=== PATIENT | male | born 1985 | race Two or more races ===

== ENCOUNTER 2016-11-19 18:14 | Emergency (ER) | payer OTHER ==
[2016-11-19 18:19] VITALS: BP 134/93; PULSE 90; TEMP 99; BMI 28.2
--- NOTE | 2016-11-19 19:30 | PDOC ---
History of Present Illness - General Chief Complaint: Respiratory Stated Complaint: COLD SYMPTOMS Time Seen by Provider: 11/19/16 18:42 History Source: Patient Exam Limitations: No Limitations - History of Present Illness Initial Comments: 11/19/16 19:28 Chief complaint: Sore throat Patient 31-year-old male with a history of seizures who states he's had 2 days of cough, sore throat, runny nose, no fever. Patient is mostly concerned regarding nasal congestion and phlegm GENERAL/CONSTITUTIONAL: No fever, weakness. dizziness HEAD, EYES, EARS, NOSE AND THROAT: No change in vision. No ear pain or discharge. +sore throat, + nasal congestion CARDIOVASCULAR: No chest pain RESPIRATORY: No shortness of breath or cough GASTROINTESTINAL: No pain, nausea, vomiting, diarrhea or constipation GENITOURINARY: No dysuria MUSCULOSKELETAL: No neck or back pain SKIN: No rash NEUROLOGIC: No headache, vertigo, loss of consciousness, or loss of sensation. GENERAL: The patient is awake, alert, and fully oriented, in no acute distress. HEAD: Normal with no signs of trauma. EYES: Pupils equal, round and reactive to light, sclera anicteric, conjunctiva clear. ENT: pharynx: no erythema, no exudate, uvula midline NECK: supple CHEST: clear, nontender, rr ABD: soft, nontender EXTREMITIES: Normal range of motion, no edema. NEUROLOGICAL: Normal speech, normal gait. SKIN: Warm, Dry Past History - Past Medical History Allergies/Adverse Reactions: Allergies Allergy/AdvReac Type Severity Reaction Status Date / Time No Known Allergies Allergy Verified 11/19/16 18:19 Home Medications: Ambulatory Orders Clobazam [Onfi -] 10 mg PO BID 09/14/15 Lacosamide [Vimpat] 1 each PO BID 09/14/15 Levetiracetam [Keppra] 1,500 mg PO BID 09/14/15 Seizures: Yes - Psycho/Social/Smoking Cessation Hx Suicidal Ideation: No Smoking History: Never smoked Hx Alcohol Use: No Drug/Substance Use Hx: No Substance Use Type: None *Physical Exam - Vital Signs Last Vital Signs Temp Pulse Resp BP Pulse Ox 99.0 F 90 18 134/93 98 11/19/16 18:17 11/19/16 18:17 11/19/16 18:17 11/19/16 18:17 11/19/16 18:17 Medical Decision Making - Medical Decision Making 11/19/16 20:06 pt appears well +flu b *DC/Admit/Observation/Transfer Diagnosis at time of Disposition: Influenza B - Discharge Dispostion Disposition: HOME Condition at time of disposition: Stable Admit: No - Patient Instructions Printed Discharge Instructions: Influenza Additional Instructions: Drink 2-3 L of water daily Take Tylenol 650 mg every 4 hours or Motrin 600 mg every 6 hours for fever and pain You can take Sudafed 30 mg as directed on the package for the next 2-3 days Return to the nearest ER if short of breath, unable to swallow or feeling sicker Followup with your doctor in one to 2 days
== END 2016-11-19 20:12 | disposition home or self-care (01) ==
LOC: JERFT 18:14
DX: J10.1 Influenza due to other identified influenza virus with other respiratory manifestations (principal); Z86.69 Personal history of other diseases of the nervous system and sense organs
CPT/HCPCS: 87070; 87430; 87804; 99281-25

== ENCOUNTER 2017-03-11 11:19 | Emergency (ER) | payer OTHER ==
[2017-03-11 11:29] VITALS: TEMP 98.2; BMI 28.3
--- NOTE | 2017-03-11 12:29 | PDOC ---
History of Present Illness - General History Source: Patient Exam Limitations: No Limitations - History of Present Illness Initial Comments: 03/11/17 12:33 The patient is a 31 year old male with past medical history of epilepsy, s/p brain surgery in 2011 who presents to the ED with complaints of left arm and leg numbness and tingling for one week. The patient states that he has experienced these symptoms intermittently for the past couple of months, primarily affecting his upper and lower extremities and occasionally his left face. However, for the past week his symptoms have been constant and are reminiscent of the sensation he would get before having a seizure. The patient was at a doctors appointment today in which his blood pressure was slightly elevated (160) but in the ED it has since gone down. He reports occasional headache but denies any LOC or neck pain. He denies any illness, fever, or chills. Neurologist: Carlos Khan <Zara Hunt - Last Filed: 03/11/17 14:43> - General History Source: Patient Exam Limitations: No Limitations <Lg Elliott - Last Filed: 03/11/17 14:55> - General Chief Complaint: Weakness Stated Complaint: BLOOD PRESSURE PROBLEM Time Seen by Provider: 03/11/17 11:41 Past History <Zara Hunt - Last Filed: 03/11/17 14:43> - Past Medical History Seizures: Yes - Psycho/Social/Smoking Cessation Hx Anxiety: No Suicidal Ideation: No Smoking History: Never smoked Have you smoked in the past 12 months: No Information on smoking cessation initiated: No Hx Alcohol Use: No Drug/Substance Use Hx: No Substance Use Type: None <Lg Elliott - Last Filed: 03/11/17 14:55> - Past Medical History Allergies/Adverse Reactions: Allergies Allergy/AdvReac Type Severity Reaction Status Date / Time No Known Allergies Allergy Verified 03/11/17 11:29 Home Medications: Ambulatory Orders Clobazam [Onfi -] 10 mg PO BID 09/14/15 Lacosamide [Vimpat] 1 each PO BID 09/14/15 Levetiracetam [Keppra] 1,500 mg PO BID 09/14/15 Review of Systems - Review of Systems Able to Perform ROS?: Yes Comments:: 03/11/17 12:33 GENERAL/CONSTITUTIONAL: No fever or chills. No weakness. HEAD, EYES, EARS, NOSE AND THROAT: No change in vision. No ear pain or discharge. No sore throat. CARDIOVASCULAR: No chest pain or shortness of breath. RESPIRATORY: No cough, wheezing, or hemoptysis. GASTROINTESTINAL: No nausea, vomiting, diarrhea or constipation. GENITOURINARY: No dysuria, frequency, or change in urination. MUSCULOSKELETAL: No joint or muscle swelling or pain. No neck or back pain. SKIN: No rash NEUROLOGIC: Present: left upper and lower extremity numbness and tingling No headache, vertigo, loss of consciousness. ENDOCRINE: No increased thirst. No abnormal weight change. HEMATOLOGIC/LYMPHATIC: No anemia, easy bleeding, or history of blood clots. ALLERGIC/IMMUNOLOGIC: No hives or skin allergy. All Other Systems: Reviewed and Negative <Zara Hunt - Last Filed: 03/11/17 14:43> *Physical Exam - Vital Signs Last Vital Signs Temp Pulse Resp BP Pulse Ox 98.2 F 68 18 150/98 100 03/11/17 11:22 03/11/17 11:22 03/11/17 11:22 03/11/17 11:22 03/11/17 11:22 - Physical Exam Comments: 03/11/17 12:34 GENERAL: Awake, alert, and fully oriented, in no acute distress HEAD: No signs of trauma EYES: PERRLA, EOMI, sclera anicteric, conjunctiva clear ENT: Auricles normal inspection, hearing grossly normal, nares patent, oropharynx clear without exudates. Moist mucosa NECK: Normal ROM, supple, no lymphadenopathy, JVD, or masses LUNGS: Breath sounds equal, clear to auscultation bilaterally. No wheezes, and no crackles HEART: Regular rate and rhythm, normal S1 and S2, no murmurs, rubs or gallops ABDOMEN: Soft, nontender, normoactive bowel sounds. No guarding, no rebound. No masses EXTREMITIES: Normal range of motion, no edema. No clubbing or cyanosis. No cords, erythema, or tenderness NEUROLOGICAL: Cranial nerves II through XII grossly intact. 5/5 motor strength. No pronator drift. Normal finger to nose. Normal speech, normal gait SKIN: Warm, Dry, normal turgor, no rashes or lesions noted. <Zara Hunt - Last Filed: 03/11/17 14:43> - Vital Signs Last Vital Signs Temp Pulse Resp BP Pulse Ox 98.2 F 68 18 150/98 100 03/11/17 11:22 03/11/17 11:22 03/11/17 11:22 03/11/17 11:22 03/11/17 11:22 <LexiLg - Last Filed: 03/11/17 14:55> Heart Score/ECG Review #1 ECG reviewed & interpreted by me at: 12:25 03/11/17 12:29 NSR 53, LVH, TWI III, no std/giselle, QTC 377 msec <Lg Elliott - Last Filed: 03/11/17 14:55> ED Treatment Course - LABORATORY CBC & Chemistry Diagram: 03/11/17 12:25 03/11/17 12:25 - RADIOLOGY Radiograph Interpretation: 03/11/17 14:[address] as reviewed by Dr. Diaz reports area of hypodensity within the right temporal lobe consistent with enecephalomalacia which is most likely postoperative in nature due to patient's history of craniotomy <Zara Hunt - Last Filed: 03/11/17 14:43> - LABORATORY CBC & Chemistry Diagram: 03/11/17 12:25 03/11/17 12:25 - RADIOLOGY Radiology Studies Ordered: Category Date Time Status HEAD CT WITHOUT CONTRAST [CT] Stat CT Scan 03/11/17 12:10 Ordered <LexiLg - Last Filed: 03/11/17 14:55> Medical Decision Making - Medical Decision Making 03/11/17 14:16 Phone call placed to Dr. Pierson at his office and case discussed. 03/11/17 14:43 Phone call placed to patient's neurologist, Dr. Khan, and after multiple phone calls the case was discussed. <Zara Hunt - Last Filed: 03/11/17 14:43> - Medical Decision Making 03/11/17 12:19 A portion of this note was documented by scribe services under my direction. I have reviewed the details of the note, within reason, and agree with the documentation with the following case summary and management plan written by me. Patient treated in the ED. Nursing notes are reviewed and incorporated into the medical decision-making. Vital signs reviewed. Peripheral IV access obtained by the nurse, laboratory studies are drawn and sent, reviewed and interpreted by myself. Vital Signs Temp Pulse Resp BP Pulse Ox 98.2 F 68 18 150/98 100 03/11/17 11:22 03/11/17 11:22 03/11/17 11:22 03/11/17 11:22 03/11/17 11:22 31-year-old male with past medical history of seizure disorder currently on Onfi 10 mg by mouth twice a day, Vimpat one tablet by mouth twice a day, Keppra 1500 mg by mouth twice a day, status post right-sided brain surgery several years ago secondary to seizures presents with constant paresthesias and tingling on the left side for one week. Patient reports in the last several months of having intermittent paresthesias along the left upper and left lower extremities and occasionally on the left face. States now that is constant despite here immersed his medications. He denies having a seizure. He reports occasional headaches but denies headache now. Given the persistence of the left sided tingling and paresthesias came to the ED for further evaluation. Patient's neurological exam is normal at this time. I have low suspicion for stroke but this could potentially be secondary to seizures. Stated that these symptoms sometimes preceded his seizures multiple years ago. We'll obtain a head CT, labs and EKG. We'll consult with the patient's neurologist Dr. Khan for further management. 03/11/17 14:52 CBC, BMP 03/11/17 12:25 03/11/17 12:25 CMP Sodium 137 mmol/L (136-145) 03/11/17 12:25 Potassium 4.0 mmol/L (3.5-5.1) 03/11/17 12:25 Chloride 102 mmol/L (98-107) 03/11/17 12:25 Carbon Dioxide 30 mmol/L (21-32) 03/11/17 12:25 Anion Gap 5 (8-16) L 03/11/17 12:25 BUN 12 mg/dL (7-18) 03/11/17 12:25 Creatinine 1.1 mg/dL (0.7-1.3) 03/11/17 12:25 Creat Clearance w eGFR > 60 (>60) 03/11/17 12:25 Random Glucose 97 mg/dL (74-106) 03/11/17 12:25 Calcium 9.3 mg/dL (8.5-10.1) 03/11/17 12:25 Total Bilirubin 0.3 mg/dL (0.2-1.0) 03/11/17 12:25 AST 22 U/L (15-37) 03/11/17 12:25 ALT 32 U/L (12-78) 03/11/17 12:25 Alkaline Phosphatase 99 U/L (45-117) 03/11/17 12:25 Creatine Kinase 417 IU/L (39-308) H 03/11/17 12:25 Creatine Kinase Index 0.2 % (0.0-5.0) 03/11/17 12:25 CK-MB (CK-2) 1.081 ng/mL (0.5-3.6) 03/11/17 12:25 Troponin I < 0.02 ng/ml (0.00-0.05) 03/11/17 12:25 Total Protein 8.3 g/dl (6.4-8.2) H 03/11/17 12:25 Albumin 4.2 g/dl (3.4-5.0) 03/11/17 12:[address] reviewed. No acute findings. Encephlomalacia. Patient is stable. Case discussed with patient's neurologist DR. Martin. States he will see patient in 2 days. No change in medications. I agree with plan. Patient also agrees. I discussed the physical exam findings, ancillary test results and final diagnoses with the patient. I answered all of the patient's questions. The patient was satisfied with the care received and felt comfortable with the discharge plan and treatment plan. The patient will call their primary care physician within 24 hours to arrange follow-up and will return to the Emergency Department with any new, persistant or worsening symptoms. <Lg Elliott - Last Filed: 03/11/17 14:55> *DC/Admit/Observation/Transfer - Attestations Scribe Attestion: 03/11/17 12:35 Documentation prepared by Zara Hunt, acting as medical aide for Lg Elliott MD. <Zara Hunt - Last Filed: 03/11/17 14:43> - Discharge Dispostion Admit: No <Lg Elliott - Last Filed: 03/11/17 14:55> Diagnosis at time of Disposition: Arm paresthesia, left - Discharge Dispostion Disposition: HOME Condition at time of disposition: Good - Referrals Referrals: Melinda Jones MD [Primary Care Provider] - Carlos Khan [Non Staff, Medical] - - Patient Instructions Printed Discharge Instructions: DI for Numbness/tingling Additional Instructions: Please follow up with DR. Khan this . Take your medications as before.
--- NOTE | 2017-03-11 12:30 | EKG ---
Test Reason : Blood Pressure : / mmHG Vent. Rate : 053 BPM Atrial Rate : 053 BPM P-R Int : 192 ms QRS Dur : 112 ms QT Int : 402 ms P-R-T Axes : 041 044 020 degrees QTc Int : 377 ms SINUS BRADYCARDIA WITH MARKED SINUS ARRHYTHMIA VOLTAGE CRITERIA FOR LEFT VENTRICULAR HYPERTROPHY NONSPECIFIC ST AND T WAVE ABNORMALITY ABNORMAL ECG NO PREVIOUS ECGS AVAILABLE REPEAT EKG IF CLINICALLY INDICATED Confirmed by NANCY ROONEY MD ([id number]) on 03/11/2017 12:30:03 PM Referred By: Confirmed By:NANCY ROONEY MD
[2017-03-11 12:38] LABS: BASOPHIL 0.6 % (0-2.0); EOSINOPHIL 0.3 % (0-4.5); MCH 29.6 pg (25.7-33.7); MCHC 33.4 g/dl (32.0-35.9); MEAN CELL VOLUME 88.7 fl (80-96); NEUTROPHILS 61.9 % (42.8-82.8); PLATELET COUNT 135 K/MM3 (134-434); RDW 14.6 % (11.9-15.9); WHITE BLOOD COUNT 6.5 K/mm3 (4.0-10.0)
[2017-03-11 12:54] LABS: ALBUMIN 4.2 g/dl (3.4-5.0); ANION GAP 5 (8-16); CALCIUM 9.3 mg/dL (8.5-10.1); CO2 30 mmol/L (21-32); CREATININE 1.1 mg/dL (0.7-1.3); GLUCOSE,RANDOM 97 mg/dL (74-106); SGOT/AST 22 U/L (15-37); SGPT/ALT 32 U/L (12-78)
[2017-03-11 12:55] LABS: BILIRUBIN,TOTAL 0.3 mg/dL (0.2-1.0); TOT PROT 8.3 g/dl (6.4-8.2)
[2017-03-11 12:58] LABS: ALK PHOS 99 U/L (45-117); CPK 417 IU/L (39-308); TROPONIN I < 0.02 ng/ml (0.00-0.05)
[2017-03-11 15:21] VITALS: BP 148/94; PULSE 66
[2017-03-13 00:08] LABS: LACOSAMIDE 5.5 ug/mL (5.0-10.0)
[2017-03-13 13:45] LABS: LEVETIRACETAM (KEPPRA) 29.8 ug/mL (10.0-40.0)
== END 2017-03-11 15:10 | disposition home or self-care (01) ==
LOC: JER 11:19
DX: R20.8 Other disturbances of skin sensation (principal); G40.909 Epilepsy, unspecified, not intractable, without status epilepticus
CPT/HCPCS: 36415; 70450-TC; 80053; 84484; 85025; 93005; 93010; 99283-25; G0480

== ENCOUNTER 2024-05-18 20:00 | Emergency (ER) | payer MEDICARE, OTHER ==
[2024-05-18 20:08] VITALS: BMI 30.7
[2024-05-18] MEDS ORDERED: ACETAMINOPHEN INJECTION 100 ML ONE (21:18)
[2024-05-18 21:23] LABS: BASO % 0.6 % (0-2.0); EOS % 2.1 % (0-4.5); HEMATOCRIT 41.2 % (35.4-49); HEMOGLOBIN 14.1 GM/dL (11.7-16.9); LYMPH % 25.2 % (8-40); MCH 31.2 pg (25.7-33.7); MCHC 34.2 g/dl (32.0-35.9); MEAN CELL VOLUME 91.4 fl (80-96); MONO % 6.5 % (3.8-10.2); NEUT % 65.6 % (42.8-82.8); PLATELET COUNT 146 10^3/uL (134-434); RBC 4.51 M/mm3 (4.00-5.60); RDW 14.8 % (11.9-15.9); WHITE BLOOD COUNT 5.2 K/mm3 (4.0-10.0)
[2024-05-18] MEDS: LACTATED RINGERS SOLUTION 1000 ML INFUS.BAG IV ONE (21:35)
[2024-05-18] MEDS: ACETAMINOPHEN 1000 MG/100 ML BAG IVPB ONE (21:35)
[2024-05-18 21:45] LABS: POTASSIUM 4.4 mmol/L (3.5-5.1)
[2024-05-18] MEDS: LORazepam 2 MG/ML SDV VIAL IVPUSH ONE (21:45)
[2024-05-18 21:51] LABS: BLOOD UREA NITROGEN 13.3 mg/dL (7-18); CALCIUM 9.2 mg/dL (8.5-10.1); MAGNESIUM 2.1 mg/dL (1.8-2.4)
[2024-05-18 21:53] LABS: BILIRUBIN,TOTAL 0.2 mg/dL (0.2-1); PHOSPHOROUS 3.1 mg/dL (2.5-4.9)
[2024-05-18 21:54] LABS: TOT PROT 7.7 g/dl (6.4-8.2)
[2024-05-18 22:00] LABS: INR 1.01 (0.83-1.09); PROTHROMBIN TIME (PATIENT) 11.6 SEC (9.7-13.0)
[2024-05-18] MEDS: PHENYTOIN 50 MG TAB.CHEW PO ONE (23:09)
[2024-05-18 23:27] LABS: PH,URINE 5.5 (5.0-8.0); URINE APPEARANCE CLEAR; URINE BILIRUBIN NEGATIVE (NEGATIVE); URINE COLOR YELLOW; URINE GLUCOSE (UA) NEGATIVE (NEGATIVE); URINE KETONE NEGATIVE (NEGATIVE); URINE LEUK ESTERASE NEGATIVE (NEGATIVE); URINE NITRITE NEGATIVE (NEGATIVE); URINE PROTEIN NEGATIVE (NEGATIVE); URINE UROBILINOGEN 0.2 mg/dL (0.2-1.0)
[2024-05-19] MEDS: PHENYTOIN 50 MG TAB.CHEW PO ONE (00:14)
[2024-05-19 01:10] VITALS: BP 129/80; PULSE 61; RESP 16; TEMP 97.5
== END 2024-05-19 01:41 | disposition home or self-care (01) ==
LOC: JER 20:00
PROC: 3E033NZ Introduction of Analgesics, Hypnotics, Sedatives into Peripheral Vein, Percutaneous Approach (ICD-10-PCS; principal; 2024-05-18)
PROC: 3E033GC Introduction of Other Therapeutic Substance into Peripheral Vein, Percutaneous Approach (ICD-10-PCS; 2024-05-18)
DX: G40.909 Epilepsy, unspecified, not intractable, without status epilepticus (principal); Z20.822 Contact with and (suspected) exposure to COVID-19
CPT/HCPCS: 0241U-QW; 36415; 70450-TC; 71045-TC-FY; 80053; 80177; 80185; 81003; 83605; 83735; 84100; 84484; 85025; 85610; 85730; 86850; 86900; 86901; 93005; 93010; 96374; 96375; 99285-25; G0480; J0131

== ENCOUNTER 2024-11-13 05:20 | Emergency (ER) | payer OTHER ==
[2024-11-13 05:33] VITALS: RESP 18; BMI 30.7
[2024-11-13] MEDS ORDERED: LORazepam 2 MG/ML SDV VIAL ONE (06:30)
[2024-11-13 06:40] LABS: ABSOLUTE IMMATURE GRANULOCYTES 0.02 x10^3/uL (0.0-0.031); BASOPHILS # 0.03 x10^3/uL (0.01-0.08); EOSINOPHIL % 1.1 % (0.8-7.0); EOSINOPHILS # 0.06 x10^3/uL (0.04-0.54); HEMATOCRIT 40.1 % (40.1-51.0); HEMOGLOBIN 13.6 g/dL (13.7-17.5); MCHC 33.9 g/dl (32.3-36.5); MEAN CELL VOLUME 90.9 fl (79.0-92.2); MEAN PLT VOLUME 11.4 fl (9.4-12.4); MONOCYTE # 0.41 x10^3/uL (0.30-0.82); MONOCYTE % 7.8 % (5.3-12.2); PLATELET COUNT 148 x10^3/uL (163-337); RDW 13.4 % (12.0-15.6)
[2024-11-13 07:00] LABS: ALBUMIN 3.8 g/dl (3.4-5.0); BLOOD UREA NITROGEN 8.6 mg/dL (7-18); CALCIUM 8.9 mg/dL (8.5-10.1); MAGNESIUM 2.1 mg/dL (1.8-2.4)
[2024-11-13 07:04] LABS: CREATININE 0.9 mg/dL (0.55-1.3)
[2024-11-13 07:06] LABS: BILIRUBIN,TOTAL 0.3 mg/dL (0.2-1); TOT PROT 7.2 g/dl (6.4-8.2)
[2024-11-13] MEDS ORDERED: cloBAZam 10 MG TABLET ONE (09:44)
[2024-11-13] MEDS ORDERED: PHENYTOIN NA EXTENDED 100 MG CAPSULE (FP) ONE (09:44)
[2024-11-13] MEDS ORDERED: FAMOTIDINE 20 MG TABLET ONE (09:44)
[2024-11-13] MEDS ORDERED: levETIRAcetam 500 MG TABLET (FP) PO ONE (09:44)
[2024-11-13] MEDS ORDERED: SERTRALINE HCL 50 MG TABLET (FP) ONE (09:45)
[2024-11-13] MEDS: levETIRAcetam 500 MG TABLET (FP) PO ONE (09:54)
[2024-11-13] MEDS: levETIRAcetam 250 MG TABLET PO ONE (09:54)
[2024-11-13] MEDS: FAMOTIDINE 20 MG TABLET PO ONE (09:54)
[2024-11-13] MEDS: PHENYTOIN NA EXTENDED 100 MG CAPSULE (FP) PO ONE (09:54)
[2024-11-13] MEDS: cloBAZam 10 MG TABLET PO ONE (09:54)
[2024-11-13] MEDS: SERTRALINE HCL 50 MG TABLET (FP) PO ONE (09:55)
[2024-11-13 11:05] VITALS: BP 115/79; PULSE 66; TEMP 97.6
== END 2024-11-13 10:49 | disposition home or self-care (01) ==
LOC: JER 05:20
PROC: 3E033GC Introduction of Other Therapeutic Substance into Peripheral Vein, Percutaneous Approach (ICD-10-PCS; principal; 2024-11-13)
DX: G40.909 Epilepsy, unspecified, not intractable, without status epilepticus (principal); M54.2 Cervicalgia; M25.511 Pain in right shoulder; M25.522 Pain in left elbow; W01.198A Fall on same level from slipping, tripping and stumbling with subsequent striking against other object, initial encounter
CPT/HCPCS: 36415; 70450-TC; 72125-TC; 73030-TC-RT-FY; 73070-TC-LT-FY; 80053; 80177; 80185; 82962; 83735; 85025; 93005; 93010; 96374; 99285-25; G0480